=== PATIENT | male | born 1965 | race Caucasian/White ===

== ENCOUNTER → 2016-05-25 | Outpatient (CLI) | payer OTHER ==
[~2016-05-25] MED LIST: ASCO10003 PO; ATOR-22 PO; CHOL1TAB42 PO; INSP SQ; INSUINJ8 SC; LSN20 PO; MULT-506 PO; OPTIRAY 320 IV PRN; ZINC1TAB PO
--- NOTE | 2016-05-25 09:02 | DIAGNOSTIC IMAGING REPORT ---
ABDOMINAL CT WITH AND WITHOUT INTRAVENOUS CONTRAST, RENAL PROTOCOL HISTORY: Abnormal ultrasound. Assess for renal mass. TECHNIQUE: Multiaxial CT images of the abdomen were performed both before and after the intravenous administration of intravenous contrast to evaluate the kidneys. COMPARISON STUDY: Abdominal ultrasound 04/11/2016. FINDINGS: No renal stones or hydronephrosis. There is a 6 mm hypodense lesion within the lower pole of the right kidney and a 2 mm hypodense lesion within the lower pole of the left kidney. These are technically too small to characterize but favor cysts. There are no solid enhancing renal masses. Small focal scar within the lower pole of the right kidney. No suspicious filling defects seen within the bilateral renal collecting system or proximal to mid bilateral ureters. Linear densities at the base of the left lower lobe likely represent subsegmental atelectasis or scarring. No suspicious lytic or blastic osseous lesions. The visualized loops of bowel show no wall thickening or obstruction. Moderate well-formed stool seen within the colon. The gallbladder is contracted. The liver and adrenal glands are unremarkable. Calcified granuloma seen within the spleen. Multiple punctate calcifications within the pancreas consistent with chronic pancreatitis. No evidence for acute pancreatitis. No retroperitoneal lymphadenopathy. IMPRESSION: 1. No solid enhancing renal masses. 2. A a few subcentimeter hypodense lesions within the kidneys which are technically too small to characterize but favor cysts. 3. Multiple pancreatic calcifications consistent with chronic pancreatitis. No evidence for acute pancreatitis at this time. Electronically signed by: Bunny Kendrick M.D. 05/25/2016 9:00 AM Dictated Date/Time: 05/25/2016 8:51 AM
== END | disposition home or self-care (01) ==
LOC: C.CTS 08:19
PROVIDERS: ATTEND Internal Medicine
DX: N28.89 Other specified disorders of kidney and ureter (principal); K86.89 Other specified diseases of pancreas

== ENCOUNTER → 2016-11-08 | Outpatient (CLI) | payer OTHER ==
[~2016-11-08] MED LIST changes: -OPTIRAY 320 IV PRN
[2016-11-08 12:27] LABS: ALT/SGPT 159 U/L (12-78); AST/SGOT 66 U/L (15-37); BLOOD UREA NITROGEN 33 mg/dl (7-18); BUN/CREATININE RATIO 40.9 (10-20); CALCIUM 9.1 mg/dl (8.5-10.1); CARBON DIOXIDE 26 mmol/L (21-32); CHLORIDE 108 mmol/L (98-107); CREATININE 0.81 mg/dl (0.60-1.40); GLUCOSE 169 mg/dl (70-99); SODIUM 139 mmol/L (136-145)
[2016-11-08 12:29] LABS: ALB/GLOB RATIO 0.9 (0.9-2); ALKALINE PHOSPHATASE 91 U/L (45-117); CHOLESTEROL 98 mg/dl (0-200); CHOLESTEROL/HDL RATIO 1.9; HDL CHOLESTEROL 52 mg/dl; LDL CHOLESTEROL CALCULATED 37 mg/dl; TRIGLYCERIDES 44 mg/dl (0-150); VERY LOW DENSITY LIPOPROT CALC 9 mg/dl
[2016-11-08 12:39] LABS: ESTIMATED AVERAGE GLUCOSE 154 mg/dl; HA1C FLAG Normal (Normal)
== END | disposition home or self-care (01) ==
LOC: C.LABBFT 07:47
PROVIDERS: ATTEND Internal Medicine
DX: Z00.00 Encounter for general adult medical examination without abnormal findings (principal); E10.21 Type 1 diabetes mellitus with diabetic nephropathy; E78.5 Hyperlipidemia, unspecified; B18.2 Chronic viral hepatitis C

== ENCOUNTER → 2017-05-18 | Outpatient (CLI) | payer OTHER ==
[2017-05-18 12:37] LABS: HEMOGLOBIN A1C 7.3 % (4.5-5.6)
[2017-05-18 13:30] LABS: ALBUMIN 3.5 gm/dl (3.4-5.0); ALT/SGPT 153 U/L (12-78); AST/SGOT 77 U/L (15-37); BLOOD UREA NITROGEN 35 mg/dl (7-18); CARBON DIOXIDE 30 mmol/L (21-32); CREATININE 0.82 mg/dl (0.60-1.40); GLUCOSE 143 mg/dl (70-99); POTASSIUM 5.4 mmol/L (3.5-5.1); SODIUM 136 mmol/L (136-145)
[2017-05-18 13:35] LABS: ALKALINE PHOSPHATASE 95 U/L (45-117)
== END | disposition home or self-care (01) ==
LOC: C.LABBFT 07:34
PROVIDERS: ATTEND Internal Medicine
DX: Z00.00 Encounter for general adult medical examination without abnormal findings (principal); I10 Essential (primary) hypertension; Z72.0 Tobacco use